=== PATIENT | female | born 1980 | race Caucasian/White ===

== ENCOUNTER 2017-05-25 22:02 | Emergency (ER) | payer BC ==
[~2017-05-25] VITALS: Ht 152.4 cm; Wt 86.2 kg
--- OUTSIDE RECORDS SUMMARY | 2017-05-25 22:30 | External Medical Summary Rpt | CCD ---
Author Author MELISSA Address Unknown Phone Purpose Continuity of Care Document - through 2016
--- OUTSIDE RECORDS SUMMARY | 2017-05-25 22:30 | External Medical Summary Rpt | CCD ---
Demographics Preferred Language Vietnamese Marital Status Unknown Holiness Affiliation Unknown Race Unknown Ethnic Group Unknown Author Author , MELISSA TORRES Address Unknown Phone Immunization No patient found.
--- OUTSIDE RECORDS SUMMARY | 2017-05-25 22:30 | External Medical Summary Rpt ---
Author Author MELISSA Sommers, [employer] Organization [employer] Address Unknown Phone Unavailable
--- OUTSIDE RECORDS SUMMARY | 2017-05-25 22:30 | External Medical Summary Rpt | CCD ---
Author Author [employer] Organization [employer] Address Unknown Phone Unavailable Purpose Continuity of Care Document - through 2016
--- OUTSIDE RECORDS SUMMARY | 2017-05-25 22:30 | External Medical Summary Rpt | CCD ---
Demographics Preferred Language Armenian Marital Status Unknown Sabianism Affiliation Unknown Race Unknown Ethnic Group Unknown Author Author , MELISSA TORRES Address Unknown Phone Immunization No patient found.
--- OUTSIDE RECORDS SUMMARY | 2017-05-25 22:30 | External Medical Summary Rpt | CCD ---
Author Author MELISSA Address Unknown Phone [email or web address] Purpose Continuity of Care Document - through 2016
[2017-05-25 22:51] LABS: HEMOGLOBIN 11.8 g/dL (12.2-16.2); LYMPH # 4.6 K/mm3 (0.7-4.5); LYMPH % 41.1 % (10-50.0)
--- NOTE | 2017-05-25 23:18 | Emergency Room Report ---
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 N Clinical Suspician of Infection? N Mental Status: 1 - Regular (Normal Baseline) Sepsis Risk:Low Sepsis Risk Have you (or family members/close friends) recently traveled outside the [place]? N If Yes, where/when: Have you had exposure to infectious disease within the past month? N TB? Other? Specify: Source patient, RN notes reviewed, family, old records Exam Limitations no limitations Comment pt with palpations today w/o chest pain or syncope Cardiac Chest Pain Chest pain indicative of cardiac No Timing/Duration this evening Severity moderate ALLERGIES Coded Allergies: Sulfa (Sulfonamide Antibiotics) (Mild, I-RASH 05/25/17) Home Medications Reported Medications No Known Home Medications History Medical History General CAD? No Angina: No NE: No Hypertension? Yes Hyperlipidemia? No CHF? No DVT? No PE? No COPD? No Asthma? No Anemia? No GERD? No Gastric ulcers? No GI Bleed? No Hernia? No Thyroid Problems? No Hypothyroidism? No CVA? No Seizures? No Diabetes? No Renal Insuffiency? No End Stage Renal Disease? No UTI? No Stones? No BPH? No GB Disease: No Nephritic Syndrome? No Asplenia? No Hepatitis? No Sickle Cell Disease? No Arthritis? No Migraines? No Cataracts? No Glaucoma? No MRSA? No HIV? No TB? No Anxiety? No Depression? No Cancer? No More? 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 Respiratory denies cough, denies shortness of breath, denies wheezing Cardiovascular see HPI, denies chest pain, palpitations, denies syncope Gastrointestinal denies abdominal pain, denies diarrhea, denies vomiting Genitourinary denies: dysuria, frequency, hesitancy, hematuria. Musculoskeletal denies back pain, denies joint pain, denies joint swelling, denies neck pain Skin denies rash Psychiatric/Neurological denies headache, denies seizure Physical Exam Vital Signs Vital Signs Date Time Temp Pulse Resp B/P Pulse O2 O2 Flow FiO2 Ox Delivery Rate 05/26 0011 84 14 152/114 96 05/25 2320 79 12 159/99 98 05/25 2218 98.8 86 18 158/111 100 - WBC >12,000 or <4,000 or 10% bands? 2 or more SIRS Criteria Met? B/P:152/114 MAP:126 Creatinine >2.0? UA output<0.5ml/kg/hr for 2 hrs? Platelet count >100,000? Lactate >2.0mmol/1? INR >1.2 or PTT > than 60 sec? Evidence of Organ Dysfunction? Provider documented clinical suspician of infection? N Sepsis Criteria Count: 0 Sepsis Risk: Low Sepsis Risk General Appearance no apparent distress Eye Exam - bilateral eye PERRL, bilateral eye EOMI Ear, Nose, Throat normal ENT inspection Neck supple Respiratory Status No: respiratory distress. Lung Sounds bilateral: lungs clear. 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 No Results/Orders Laboratory Tests 05/25/172244: TSH 3.62, Thyroxine (T4) 9.2 05/25/172244: Sodium 142, Potassium 3.7, Chloride 106, Carbon Dioxide 27, BUN 13, Creatinine 0.9, Estimated Creat Clear 116, Estimated GFR (MDRD) 70, Glucose 105, Calcium 8.9, Total Bilirubin 0.4, AST 17, ALT 19, Alkaline Phosphatase 96, Creatine Kinase 49, CK-MB (CK-2) Rel Index 1.0, CK and CKMB Interp < 0.5, Troponin I < 0.02, Total Protein 7.1, Albumin 3.7, Globulin 3.4 H, Albumin/Globulin Ratio 1.1, WBC 11.2 H, RBC 4.67, Hgb 11.8 L, Hct 36.3 L, MCV 77.6 L, RDW 14.0, Plt Count 301, MPV 7.4, Gran % 50.9, Gran # 5.7, Lymphocytes % 41.1, Monocytes % 5.2 , Eosinophils % 2.1, Basophils % 0.7, Lymphocytes # 4.6 H, Monocytes # 0.6, Eosinophils # 0.2, Basophils # 0.1, PUBS MCHC 32.5, MCH 25.2 L Current Medication Orders Sig/Tuan Start time Last Medication Dose Route Stop Time Status Admin Lisinopril 10 MG ONCE ONE 05/26 15 AC 05/26 PO 05/26 16 001 Lisinopril 0 .STK-MED ONE 05/26 11 DC .ROUTE Sodium Chloride 10 ML PRN PRN 05/25 2230 AC IV 05/26 2223 Orders Procedure Date/time Status THYROID STIMULATING HORMONE 05/25 2318 Complete THYROXINE (T4) 05/25 2318 Complete ELECTROCARDIOGRAM REQUEST 05/25 2224 Active CHEST(2 VIEWS-NOT PORTABLE) 05/25 2224 Active IV SALINE LOCK 05/25 2224 Active CBC WITH AUTO DIFF 05/25 2224 Complete CARDIAC ENZYMES 05/25 2224 Complete CHEM 12 PROFILE 05/25 2224 Complete CM/EKG CM/angle dozer operator Rhythm Sinus Tachycardia EKG non-spec. ST/Twave chgs XRAY/CT/US XRAY/CT/US XRAY chest XR interpretation by reviewed by me Xray Results normal/NAD Departure Departure Time of Disposition 9 Disposition DC Home or Self Care(routine) Clinical Impression Primary Impression: Heart palpitations Secondary Impressions: Hypertensive emergency Condition STABLE Patient Instructions DI for Palpitations Additional Instructions use meds and see pcp for follow up and dec caffeine Discharge Counseling Counseled pt/family regarding diagnosis, test results, medications/RX, follow up needs Prescriptions Current Visit Scripts LISINOPRIL (Lisinopril) 10 MG PO DAILY #21 TAB ED Critical Care Critical Care No at 0015
--- NOTE | 2017-05-25 23:18 | Emergency Room Report ---
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 N Clinical Suspician of Infection? N Mental Status: 1 - Regular (Normal Baseline) Sepsis Risk:Low Sepsis Risk Have you (or family members/close friends) recently traveled outside the [place]? N If Yes, where/when: Have you had exposure to infectious disease within the past month? N TB? Other? Specify: Source patient, RN notes reviewed, family, old records Exam Limitations no limitations Comment pt with palpations today w/o chest pain or syncope Cardiac Chest Pain Chest pain indicative of cardiac No Timing/Duration this evening Severity moderate ALLERGIES Coded Allergies: Sulfa (Sulfonamide Antibiotics) (Mild, I-RASH 05/25/17) Home Medications Reported Medications No Known Home Medications History Medical History General CAD? No Angina: No VT: No Hypertension? Yes Hyperlipidemia? No CHF? No DVT? No PE? No COPD? No Asthma? No Anemia? No GERD? No Gastric ulcers? No GI Bleed? No Hernia? No Thyroid Problems? No Hypothyroidism? No CVA? No Seizures? No Diabetes? No Renal Insuffiency? No End Stage Renal Disease? No UTI? No Stones? No BPH? No GB Disease: No Nephritic Syndrome? No Asplenia? No Hepatitis? No Sickle Cell Disease? No Arthritis? No Migraines? No Cataracts? No Glaucoma? No MRSA? No HIV? No TB? No Anxiety? No Depression? No Cancer? No More? 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 Respiratory denies cough, denies shortness of breath, denies wheezing Cardiovascular see HPI, denies chest pain, palpitations, denies syncope Gastrointestinal denies abdominal pain, denies diarrhea, denies vomiting Genitourinary denies: dysuria, frequency, hesitancy, hematuria. Musculoskeletal denies back pain, denies joint pain, denies joint swelling, denies neck pain Skin denies rash Psychiatric/Neurological denies headache, denies seizure Physical Exam Vital Signs Vital Signs Date Time Temp Pulse Resp B/P Pulse O2 O2 Flow FiO2 Ox Delivery Rate 05/26 0011 84 14 152/114 96 05/25 2320 79 12 159/99 98 05/25 2218 98.8 86 18 158/111 100 - WBC >12,000 or <4,000 or 10% bands? 2 or more SIRS Criteria Met? B/P:152/114 MAP:126 Creatinine >2.0? UA output<0.5ml/kg/hr for 2 hrs? Platelet count >100,000? Lactate >2.0mmol/1? INR >1.2 or PTT > than 60 sec? Evidence of Organ Dysfunction? Provider documented clinical suspician of infection? N Sepsis Criteria Count: 0 Sepsis Risk: Low Sepsis Risk General Appearance no apparent distress Eye Exam - bilateral eye PERRL, bilateral eye EOMI Ear, Nose, Throat normal ENT inspection Neck supple Respiratory Status No: respiratory distress. Lung Sounds bilateral: lungs clear. 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 No Results/Orders Laboratory Tests 05/25/172244: TSH 3.62, Thyroxine (T4) 9.2 05/25/172244: Sodium 142, Potassium 3.7, Chloride 106, Carbon Dioxide 27, BUN 13, Creatinine 0.9, Estimated Creat Clear 116, Estimated GFR (MDRD) 70, Glucose 105, Calcium 8.9, Total Bilirubin 0.4, AST 17, ALT 19, Alkaline Phosphatase 96, Creatine Kinase 49, CK-MB (CK-2) Rel Index 1.0, CK and CKMB Interp < 0.5, Troponin I < 0.02, Total Protein 7.1, Albumin 3.7, Globulin 3.4 H, Albumin/Globulin Ratio 1.1, WBC 11.2 H, RBC 4.67, Hgb 11.8 L, Hct 36.3 L, MCV 77.6 L, RDW 14.0, Plt Count 301, MPV 7.4, Gran % 50.9, Gran # 5.7, Lymphocytes % 41.1, Monocytes % 5.2 , Eosinophils % 2.1, Basophils % 0.7, Lymphocytes # 4.6 H, Monocytes # 0.6, Eosinophils # 0.2, Basophils # 0.1, PUBS MCHC 32.5, MCH 25.2 L Current Medication Orders Sig/Tuan Start time Last Medication Dose Route Stop Time Status Admin Lisinopril 10 MG ONCE ONE 05/26 15 AC 05/26 PO 05/26 16 001 Lisinopril 0 .STK-MED ONE 05/26 11 DC .ROUTE Sodium Chloride 10 ML PRN PRN 05/25 2230 AC IV 05/26 2223 Orders Procedure Date/time Status THYROID STIMULATING HORMONE 05/25 2318 Complete THYROXINE (T4) 05/25 2318 Complete ELECTROCARDIOGRAM REQUEST 05/25 2224 Active CHEST(2 VIEWS-NOT PORTABLE) 05/25 2224 Active IV SALINE LOCK 05/25 2224 Active CBC WITH AUTO DIFF 05/25 2224 Complete CARDIAC ENZYMES 05/25 2224 Complete CHEM 12 PROFILE 05/25 2224 Complete CM/EKG CM/liaison officer Rhythm Sinus Tachycardia EKG non-spec. ST/Twave chgs XRAY/CT/US XRAY/CT/US XRAY chest XR interpretation by reviewed by me Xray Results normal/NAD Departure Departure Time of Disposition 9 Disposition DC Home or Self Care(routine) Clinical Impression Primary Impression: Heart palpitations Secondary Impressions: Hypertensive emergency Condition STABLE Patient Instructions DI for Palpitations Additional Instructions use meds and see pcp for follow up and dec caffeine Discharge Counseling Counseled pt/family regarding diagnosis, test results, medications/RX, follow up needs Prescriptions Current Visit Scripts LISINOPRIL (Lisinopril) 10 MG PO DAILY #21 TAB ED Critical Care Critical Care No at 0015
[2017-05-25 23:20] LABS: BUN 13 mg/dL (7-18)
[2017-05-25 23:25] LABS: GFR (ESTIMATED) 70 ML/MIN (59-)
[2017-05-26] MEDS ORDERED: LISINOPRIL 10MG10 MG PO (00:12)
[2017-05-26 00:21] VITALS: BP 152/114
--- NOTE | 2017-05-26 04:50 | RADIOLOGY REPORT PS360 ---
CHEST(2 VIEWS-NOT PORTABLE) HISTORY: C/O HEART FLUTTERING ORDERING PHYSICIAN: Martha Faust MD PATIENT AGE: 36 years COMPARISON: None available FINDINGS: The cardiomediastinal silhouette and pulmonary vascularity are within normal limits. The lungs are clear without infiltrates, suspicious nodules, or pleural effusions. No acute bony abnormalities. IMPRESSION: Negative chest, no acute finding
== END 2017-05-26 00:26 | disposition home or self-care (01) ==
LOC: ER 22:02
PROVIDERS: Emergency Medicine
DX: R00.2 Palpitations (principal); I10 Essential (primary) hypertension; Z88.2 Allergy status to sulfonamides